=== PATIENT | female | born 1975 | race Caucasian/White ===

== ENCOUNTER 2019-10-09 20:17 | Emergency (ER) | payer MEDICAID ==
[~2019-10-09] VITALS: Ht 165.1 cm; Wt 72.6 kg
[2019-10-09 20:25] VITALS: BP 120/79; Ht 165.1 cm; Wt 72.6 kg
== END 2019-10-09 22:25 | disposition home or self-care (01) ==
LOC: ED 20:17
DX: S82.61XA Displaced fracture of lateral malleolus of right fibula, initial encounter for closed fracture (principal); M77.31 Calcaneal spur, right foot; R42 Dizziness and giddiness; X50.1XXA Overexertion from prolonged static or awkward postures, initial encounter; Y93.89 Activity, other specified; Y99.8 Other external cause status; Y92.89 Other specified places as the place of occurrence of the external cause
CPT/HCPCS: J1885